=== PATIENT | female | born 1995 | race Caucasian/White ===

== ENCOUNTER 2019-05-09 19:34 | Emergency (ER) | payer MEDICAID ==
[~2019-05-09] VITALS: Ht 160 cm; Wt 78.0 kg
[2019-05-09 20:59] VITALS: BP 136/69
== END 2019-05-09 22:53 | disposition home or self-care (01) ==
LOC: ER 19:37
DX: S43.402A Unspecified sprain of left shoulder joint, initial encounter (principal); R51 Headache; V00.311A Fall from snowboard, initial encounter; Y93.23 Activity, snow (alpine) (downhill) skiing, snowboarding, sledding, tobogganing and snow tubing; Y92.89 Other specified places as the place of occurrence of the external cause; Y99.8 Other external cause status
CPT/HCPCS: 70450; 72125; 73030; 73060; 73090

== ENCOUNTER 2019-09-02 14:39 | Emergency (ER) | payer MEDICAID ==
[~2019-09-02] VITALS: Ht 162.6 cm; Wt 54.0 kg
[2019-09-02] MEDS ORDERED: TETANUS-DIPTH-ACEL PERTUSSIS 0.5ML SYR Tdap IM ONE (15:30)
[2019-09-02] MEDS ORDERED: cefTRIAXone SOD 1,000 MG VL IM ONE (15:30)
[2019-09-02] MEDS ORDERED: ACETAMINOPHEN 325 MG TAB PO ONE (16:15)
[2019-09-02 16:24] VITALS: BP 127/66
== END 2019-09-02 16:26 | disposition home or self-care (01) ==
LOC: ER 14:39
DX: L03.115 Cellulitis of right lower limb (principal); F17.210 Nicotine dependence, cigarettes, uncomplicated
CPT/HCPCS: 90471; 90715; 96372; 99284; J0696

== ENCOUNTER 2021-06-02 19:33 | Emergency (ER) | payer MEDICAID ==
[~2021-06-02] VITALS: Ht 162.6 cm; Wt 56.7 kg
[2021-06-02 21:22] VITALS: BP 128/74
== END 2021-06-02 20:57 | disposition home or self-care (01) ==
LOC: ER 19:36
DX: S61.002A Unspecified open wound of left thumb without damage to nail, initial encounter (principal); F17.210 Nicotine dependence, cigarettes, uncomplicated; W26.8XXA Contact with other sharp object(s), not elsewhere classified, initial encounter; Y93.89 Activity, other specified; Y92.89 Other specified places as the place of occurrence of the external cause; Y99.8 Other external cause status